=== PATIENT | female | born 1995 | race Caucasian/White ===

== ENCOUNTER 2017-08-15 17:03 | Emergency (ER) | payer OTHER ==
[~2017-08-15] VITALS: Ht 170.2 cm; Wt 74.8 kg
[2017-08-15 18:05] LABS: APPEARANCE CLEAR ((CLEAR)); BILIRUBIN NEGATIVE; BLOOD NEGATIVE; COLOR YELLOW ((YELLOW)); GLUCOSE (STRIP) NEGATIVE; KETONES NEGATIVE; LEUKOCYTES NEGATIVE; NITRITE NEGATIVE; PROTEIN (STRIP) NEGATIVE; SPECIFIC GRAVITY 1.025 (1.000-1.030); UROBILINOGEN 0.2 MG/DL (0.2-1.0)
[2017-08-15 18:15] LABS: CHLORIDE 104 mEq/L (99-109); POTASSIUM 3.7 mEq/L (3.7-5.4); SODIUM 138 mEq/L (136-147)
[2017-08-15 18:16] LABS: GLUCOSE 106 mg/dL (70-99)
[2017-08-15 18:20] LABS: CREATININE 0.7 mg/dL (0.6-1.3)
[2017-08-15 18:21] LABS: UREA NITROGEN (BUN) 17 mg/dL (9-23)
[2017-08-15 18:25] LABS: GFR ESTIMATE (CALCULATED) > 59 mL/min/
[2017-08-15 19:06] VITALS: BP 107/67
== END 2017-08-15 19:06 | disposition home or self-care (01) ==
LOC: EME 17:03 → EXP 17:03
PROVIDERS: Physician Assistant
DX: O21.9 Vomiting of pregnancy, unspecified (principal); Z3A.08 8 weeks gestation of pregnancy
CPT/HCPCS: 80048; 81003; 99281; 99285; J0780; J7030

== ENCOUNTER 2017-09-03 08:56 | Emergency (ER) | payer OTHER ==
[~2017-09-03] VITALS: Ht 170.2 cm; Wt 74.9 kg
[2017-09-03 09:39] LABS: HEMATOCRIT 36.6 % (36.0-46.0); HEMOGLOBIN 13.2 G/DL (11.9-15.5); MCHC 36.1 G/DL (30.0-36.0); MCV 85.9 FL (83-99); PLATELET COUNT 245 K/uL (156-360); RBC DIS.WIDTH-CV 12.1 % (11.8-14.6); RBC DIS.WIDTH-SD 37.8 % (39-53); RED BLOOD COUNT 4.26 M/uL (3.80-5.20)
[2017-09-03 09:50] LABS: CHLORIDE 104 mEq/L (99-109); SODIUM 137 mEq/L (136-147)
[2017-09-03 09:52] LABS: GLUCOSE 81 mg/dL (70-99)
[2017-09-03 09:54] LABS: APPEARANCE CLEAR ((CLEAR)); BILIRUBIN NEGATIVE; BLOOD NEGATIVE; COLOR YELLOW ((YELLOW)); GLUCOSE (STRIP) NEGATIVE; KETONES NEGATIVE; LEUKOCYTES NEGATIVE; NITRITE NEGATIVE; PROTEIN (STRIP) NEGATIVE; SPECIFIC GRAVITY 1.014 (1.000-1.030); UCUL ADDED? NO; UROBILINOGEN 0.2 MG/DL (0.2-1.0)
[2017-09-03 09:54] LABS: TOTAL BILIRUBIN 0.4 mg/dL (0.0-1.0)
[2017-09-03 09:56] LABS: ALKALINE PHOSPHATASE 57 IU/L (3-129); CREATININE 0.7 mg/dL (0.6-1.3); GFR ESTIMATE (CALCULATED) > 59 mL/min/
[2017-09-03 09:57] LABS: UREA NITROGEN (BUN) 17 mg/dL (9-23)
[2017-09-03 09:58] LABS: AST (GOT) 13 IU/L (2-34)
[2017-09-03 09:59] LABS: ALT (GPT) 11 IU/L (3-49)
[2017-09-03 10:23] LABS: QUANTITATIVE HCG 125012.6 MIU/ML
[2017-09-03] MEDS ORDERED: PROMETHAZINE HC25 M1 PO (10:45)
[2017-09-03 12:31] VITALS: BP 119/76
== END 2017-09-03 12:36 | disposition home or self-care (01) ==
LOC: EME 08:56
DX: O21.9 Vomiting of pregnancy, unspecified (principal); Z3A.10 10 weeks gestation of pregnancy
CPT/HCPCS: 76801; 80053; 81003; 84702; 85027; 99281; 99284; J7030